=== PATIENT | female | born 1995 | race Caucasian/White ===

== ENCOUNTER 2019-09-10 14:33 | Emergency (ER) | payer BC, OTHER ==
[2019-09-10] MEDS ORDERED: SODIUM CHLORIDE 1,000 ML IV STA (14:49)
--- NOTE | 2019-09-10 14:49 | PDOC ---
Rapid Medical Evaluation Chief Complaint: Pain Time Seen by Provider: 09/10/19 14:46 Medical Evaluation: 09/10/19 14:48 CC: sudden left flank pain with n/v, no blood in urine, hx of rt renal colic Exam: appears uncomfortable, vss, left cva tenderness Plan: labs, urine, ivf, toradol, zofran Discharge Disposition - Diagnosis Left flank pain - Referrals - Patient Instructions - Post Discharge Activity
[2019-09-10] MEDS ORDERED: ONDANSETRON 4 MG/2 ML VIAL IVPUSH ONE (14:50)
[2019-09-10] MEDS ORDERED: KETOROLAC TROMETHAMINE 30 MG/1 ML VIAL IVPUSH ONE ×2 (14:50→16:23)
[2019-09-10 15:00] VITALS: BMI 20.3
--- NOTE | 2019-09-10 15:09 | PDOC ---
History of Present Illness - General Chief Complaint: Pain Stated Complaint: STOMACH PAIN Time Seen by Provider: 09/10/19 14:46 - History of Present Illness Initial Comments: 24 yo female with PMH of nephrolithiasis and UTI presents with 3 hour history of sudden left flank pain. The pain is worsened by movement and associated with nonbilious nonbloody vomiting. Patient feels that this is similar to her previous kidney stone episode. She denies dysuria, urinary frequency, diaphoresis, chest pain, sob, diarrhea, constipation. She is sexually active and uses oral contraceptive. Denies any trauma. Past History - Medical History Allergies/Adverse Reactions: Allergies Allergy/AdvReac Type Severity Reaction Status Date / Time Penicillins Allergy Verified 09/10/19 16:00 Home Medications: Ambulatory Orders Ciprofloxacin [Cipro -] 500 mg PO DAILY 3 Days #3 tablet 09/10/19 Ibuprofen 600 mg PO TID PRN #12 tablet 09/10/19 - Psycho-Social/Smoking History Smoking History: Never smoked Information on smoking cessation initiated: No - Substance Abuse Hx (Audit-C & DAST Scrn) How often the patient has a drink containing alcohol: Never Score: In Men: 4 or > Positive; In Women: 3 or > Positive: 0 Screen Result (Pos requires Nsg. Audit-10AR): Negative Review of Systems - Review of Systems Constitutional: No: Chills, Diaphoresis, Fever HEENTM: No: Recent change in vision, Double Vision Respiratory: No: Cough, Shortness of Breath Cardiac (ROS): No: Chest Pain, Edema, Irregular Heart Rate ABD/GI: Yes: Nausea, Vomiting. No: Abdominal Distended, Diarrhea : Yes: Flank Pain. No: Burning, Dysuria, Discharge, Frequency, Hematuria Musculoskeletal: Yes: Back Pain. No: Joint Pain, Joint Stiffness Integumentary: No: Bruising, Erythema, Flushing, Pruritus, Rash Neurological: No: Headache, Dizziness Psychiatric: No: Anxiety, Depression, Mood Swings Endocrine: No: Intolerance to Cold, Intolerance to Heat, Increased Urine *Physical Exam - Vital Signs Last Vital Signs Temp Pulse Resp BP Pulse Ox 98.2 F 94 H 17 131/89 100 09/10/19 14:47 09/10/19 14:47 09/10/19 14:47 09/10/19 14:47 09/10/19 14:47 - Physical Exam General Appearance: Yes: Appropriately Dressed, Apparent Distress, Severe Distress HEENT: positive: EOMI, Normal Voice Respiratory/Chest: positive: Lungs Clear, Normal Breath Sounds. negative: Respiratory Distress Cardiovascular: positive: Regular Rhythm, Regular Rate, S1, S2. negative: Edema, Murmur Gastrointestinal/Abdominal: positive: Flat, Soft, Other (Left CVA tenderness. No suprapubic tenderness. ). negative: Tender Lymphatic: negative: Adenopathy, Tenderness Musculoskeletal: positive: Normal Inspection. negative: Decreased Range of Motion ED Treatment Course - LABORATORY CBC & Chemistry Diagram: 09/10/19 15:40 09/10/19 15:40 Medical Decision Making - Medical Decision Making 24 yo female with PMH of nephrolithiasis presents with 3hr acute onset constant flank pain with nausea/vomiting. She says this episode is similar to her previous kidney stone episode. CBC, CMP, tests were negative. She was given 1L IV fluids, 1g IV tylenol, 30mg toradol, 4mg zofran. She received a Abdominal/Pelvic US which determined mild nephrohydrosis with a small 2mm stone in the renal pelvis. Pt indicates that pain has substantially decreased and is now resting comfortable. Her vitals are stable and she is able to tolerate oral medication. We discussed certain symptoms to be wary of that would warrant a return to the ED. 09/10/19 18:14 09/10/19 18:42 Discharge - Discharge Information Problems reviewed: Yes Clinical Impression/Diagnosis: Left flank pain, Nephrolithiasis Condition: Stable Disposition: HOME - Admission No - Additional Discharge Information Prescriptions: Ciprofloxacin [Cipro -] 500 mg PO DAILY 3 Days #3 tablet - Follow up/Referral Referrals: [facility] [place] [facility] [place] [Provider Group] Chantel Pond MD [Staff Physician] - - Patient Discharge Instructions Additional Instructions: You were treated today for a kidney stones. Follow with the referred PCP and printed circuit board panels plater for further monitoring of your kidney stones. If your condition worsens, return to the ED for further evaluation. This will include but are not limited to intractable vomiting, fevers, flank pain. Take Ibuprofen 600mg for pain (up to 3/day). We will prescribe you Ciprofloxacin 500mg, 1/day, for 3 days to treat your UTI. - Post Discharge Activity
[2019-09-10 15:44] LABS: BASO % 0.4 % (0-2.0); HEMATOCRIT 37.9 % (32.4-45.2); HEMOGLOBIN 12.1 GM/dL (10.7-15.3); LYMPH % 4.9 % (8-40); MCH 24.7 pg (25.7-33.7); MEAN CELL VOLUME 77.4 fl (80-96); MEAN PLT VOLUME 9.4 fl (7.5-11.1); NEUT % 91.7 % (42.8-82.8); PLATELET COUNT 414 K/MM3 (134-434); RBC 4.89 M/mm3 (3.60-5.2); RDW 15.4 % (11.6-15.6); WHITE BLOOD COUNT 10.9 K/mm3 (4.0-10.0)
[2019-09-10 16:05] LABS: ALBUMIN 4.1 g/dl (3.4-5.0); BILIRUBIN,TOTAL 0.9 mg/dL (0.2-1); BLOOD UREA NITROGEN 7.5 mg/dL (7-18); CALCIUM 9.6 mg/dL (8.5-10.1); POTASSIUM 5.2 mmol/L (3.5-5.1); TOT PROT 8.9 g/dl (6.4-8.2)
--- NOTE | 2019-09-10 16:15 | PDOC ---
Documentation entered by Konrad Schwartz SCRIBE, acting as scribe for Stevan Bowles MD. Stevan Bowles MD: This documentation has been prepared by the Efren flores Alexis, SCRIBE, under my direction and personally reviewed by me in its entirety. I confirm that the documentation accurately reflects all work, treatment, procedures, and medical decision making performed by me. Attending Attestation - Resident Resident Name: Leandra Cadet - ED Attending Attestation I have performed the following: I have examined & evaluated the patient, The case was reviewed & discussed with the resident, I agree w/resident's findings & plan, Exceptions are as noted - HPI HPI: 09/10/19 16:01 The patient is a 24 year old female with a significant past medical history of nephrolithiasis, UTI who presents to the ED with sudden onset left flank pain for 3 hours. Patient reports pain is worsened with movement and endorses NBNB vomiting. Patient also endorses she is feeling similar to previous nephrolithiasis episodes. Patient is sexually active and uses oral contraceptive. The patient denies dysuria, urinary frequency, diaphoresis, chest pain and shortness of breath. Denies fever, chills and/or any symptoms. Social Hx: None reported Allergies: Currently unknown - Physicial Exam PE: 09/10/19 15:28 See resident exam - Medical Decision Making 09/10/19 16:15 24 F with L flank pain. Suspect renal colic. Will r/o pyelo or infected stone. - Labs - UA, UCx - Pain control UA with blood, no infection Labs wnl Pain well controlled Pt is well appearing, with normal vitals. Clinically stable for DC at this time. I discussed the physical exam findings, ancillary test results and final diagnoses with the patient. I answered all of the patient's questions. The patient was satisfied with the care received and felt comfortable with the discharge plan and treatment plan. The patient agrees to follow up with the primary care physician within 24-72 hours. Please note this patient was evaluated during the COVID-19 crisis with the presidential [place] Act Declaration and the [place] governor executive order number 202. He/she was evaluated and clinical decisions were made relative to healthcare system resources as well as clinical picture during a pandemic crisis situation. Discharge - Discharge Information Problems reviewed: Yes Clinical Impression/Diagnosis: Left flank pain, Nephrolithiasis Condition: Stable Disposition: HOME - Additional Discharge Information Prescriptions: Ciprofloxacin [Cipro -] 500 mg PO DAILY 3 Days #3 tablet Ibuprofen 600 mg PO TID PRN #12 tablet PRN Reason: Pain - Follow up/Referral Referrals: [facility] – [place] [facility] [place] [Provider Group] Chantel Pond MD [Staff Physician] - - Patient Discharge Instructions Additional Instructions: You were treated today for a kidney stones. Follow with the referred PCP and cable placer for further monitoring of your kidney stones. If your condition worsens, return to the ED for further evaluation. This will include but are not limited to intractable vomiting, fevers, flank pain. Take Ibuprofen 600mg for p ain (up to 3/day). We will prescribe you Ciprofloxacin 500mg, 1/day, for 3 days to treat your UTI. - Post Discharge Activity
[2019-09-10 16:20] LABS: PLATELET ESTIMATE ADEQUATE
[2019-09-10] MEDS ORDERED: KETOROLAC TROMETHAMINE 30 MG/1 ML VIAL ONE (16:41)
[2019-09-10] MEDS ORDERED: ACETAMINOPHEN 1000 MG/100 ML VIAL (NON FORMULARY) IVPB ONE (16:45)
[2019-09-10 18:03] VITALS: BP 116/80; PULSE 74; TEMP 98.5
[2019-09-10 18:28] LABS: HCG,QUALITATIVE URINE Negative
[2019-09-10 18:29] LABS: EPI CELLS 8 /uL (0-25.1); HYALINE CASTS 0 /uL (0-3.1); PH,URINE >= 9.0 (5.0-8.0); URINE APPEARANCE CLEAR; URINE BACTERIA 114 /uL (0-1359); URINE BILIRUBIN NEGATIVE (NEGATIVE); URINE COLOR YELLOW; URINE GLUCOSE (UA) NEGATIVE (NEGATIVE); URINE KETONE 2+ (NEGATIVE); URINE LEUK ESTERASE NEGATIVE (NEGATIVE); URINE NITRITE NEGATIVE (NEGATIVE); URINE PROTEIN NEGATIVE (NEGATIVE); URINE RBC 1322 /uL (0-23.9); URINE WBC 7 /uL (0-25.8)
== END 2019-09-10 19:09 | disposition home or self-care (01) ==
LOC: JER 14:33
PROC: 3E033GC Introduction of Other Therapeutic Substance into Peripheral Vein, Percutaneous Approach (ICD-10-PCS; principal; 2019-09-10)
PROC: 3E0234Z Introduction of Serum, Toxoid and Vaccine into Muscle, Percutaneous Approach (ICD-10-PCS; principal; 2019-09-10)
DX: N20.0 Calculus of kidney (principal)
CPT/HCPCS: 36415; 76700-TC; 76775-TC; 80053; 81003; 84703; 85025; 99284-25; J0131

== ENCOUNTER 2019-11-08 11:02 | Emergency (ER) | payer BC, OTHER ==
[2019-11-08 11:08] VITALS: BP 113/78; PULSE 97; TEMP 98.3; BMI 20.2
--- NOTE | 2019-11-08 11:30 | PDOC ---
History of Present Illness - General Chief Complaint: Ear Problem Stated Complaint: EAR INFECTION Time Seen by Provider: 11/08/19 11:13 - History of Present Illness Initial Comments: 11/08/19 11:25 24-year-old female without comorbidities presents for evaluation of bilateral ear pain x3 days seen in an urgent care treated for otitis externa she continues to have pain. She is on Cipro Floxin drops Past History - Medical History Home Medications: Ambulatory Orders Ciprofloxacin [Cipro -] 500 mg PO DAILY 3 Days #3 tablet 09/10/19 Ibuprofen 600 mg PO TID PRN #12 tablet 09/10/19 Amox-Tr/K Cl [Augmentin - 875Mg Tablet] 1 tab PO BID #20 tablet 11/08/19 Neomycin/Polymyxin B/Hydrocort [Pkqfhsmb-Ojiljaiaf-Yn Ear Susp] 10 ml OT QID 7 Days #1 drops.susp 11/08/19 COPD: No Kidney Stones: Yes - Reproductive History Is Patient Now?: No - Immunization History Immunization Up to Date: No - Psycho-Social/Smoking History Smoking History: Never smoked - Substance Abuse Hx (Audit-C & DAST Scrn) How often the patient has a drink containing alcohol: Never Score: In Men: 4 or > Positive; In Women: 3 or > Positive: 0 Screen Result (Pos requires Nsg. Audit-10AR): Negative In the last yr the pt used illegal drug/Rx for NonMed reason: No Score: Yes response is considered Positive: 0 Screen Result (Positive result requires Nsg. DAST-10): Negative Review of Systems - Review of Systems HEENTM: Yes: Ear Pain *Physical Exam - Vital Signs Last Vital Signs Temp Pulse Resp BP Pulse Ox 98.3 F 97 H 18 113/78 100 11/08/19 11:05 11/08/19 11:05 11/08/19 11:05 11/08/19 11:05 11/08/19 11:05 - Physical Exam 11/08/19 11:25 Bilateral ear canals are erythemic with flaking of skin. Bilateral tympanic membranes are retracted and erythemic without light reflex. 11/08/19 11:30 Right ear has a periauricular lymph node which is freely mobile and non-matted Medical Decision Making - Medical Decision Making 11/08/19 11:25 I am concerned she may be having allergic reaction to the Cipro Floxin. I will switch her to neomycin eardrops with steroid for pain as well as oral Augmentin. Follow-up with ENT I have reviewed the pathophysiology with the patient. They are in agreement with the treatment plan all questions were answered to their satisfaction. Understanding for follow-up without fail was also conveyed to the patient. Again they are in agreement. Discharge - Discharge Information Problems reviewed: Yes Clinical Impression/Diagnosis: Otitis media, Otitis externa Condition: Stable Disposition: HOME - Admission No - Additional Discharge Information Prescriptions: Amox-Tr/K Cl [Augmentin - 875Mg Tablet] 1 tab PO BID #20 tablet - Follow up/Referral Referrals: Albert Gerard MD [Staff Physician] - - Patient Discharge Instructions Additional Instructions: Discontinue the Cipro eardrops. Please start the neomycin eardrops as well as the oral Augmentin. Return to the emergency room for worsening symptoms and without fail follow-up with ear nose and throat doctor in 1 to 2 days for further evaluation and treatment options. Tylenol and Motrin for any discomfort. - Post Discharge Activity
== END 2019-11-08 11:51 | disposition home or self-care (01) ==
LOC: JERFT 11:02
DX: H60.93 Unspecified otitis externa, bilateral (principal); H66.93 Otitis media, unspecified, bilateral
CPT/HCPCS: 99282-25

== ENCOUNTER 2020-02-06 08:20 | Emergency (ER) | payer BC, OTHER ==
[2020-02-06 08:29] VITALS: BP 125/87; PULSE 71; TEMP 97.8; BMI 20.3
[2020-02-06] MEDS ORDERED: ACETAMINOPHEN 325 MG TABLET (FP) ONE (09:15)
[2020-02-06 09:25] LABS: BASO % 0.8 % (0-2.0); EOS % 4.5 % (0-4.5); HEMATOCRIT 37.1 % (32.4-45.2); HEMOGLOBIN 11.8 GM/dL (10.7-15.3); LYMPH % 29.1 % (8-40); MCH 25.3 pg (25.7-33.7); MCHC 31.9 g/dl (32.0-36.0); MEAN CELL VOLUME 79.3 fl (80-96); MEAN PLT VOLUME 8.9 fl (7.5-11.1); MONO % 7.5 % (3.8-10.2); NEUT % 58.1 % (42.8-82.8); PLATELET COUNT 300 K/MM3 (134-434); RBC 4.67 M/mm3 (3.60-5.2); RDW 17.2 % (11.6-15.6); WHITE BLOOD COUNT 5.2 K/mm3 (4.0-10.0)
[2020-02-06] MEDS ORDERED: ACETAMINOPHEN 325 MG TABLET (FP) PO ONE (09:32)
[2020-02-06 10:13] LABS: ALBUMIN 3.9 g/dl (3.4-5.0); ALK PHOS 65 U/L (45-117); ANION GAP 6 MMOL/L (8-16); BILIRUBIN,TOTAL 0.3 mg/dL (0.2-1); BLOOD UREA NITROGEN 7.7 mg/dL (7-18); CALCIUM 8.9 mg/dL (8.5-10.1); CHLORIDE 104 mmol/L (98-107); CO2 28 mmol/L (21-32); CREATININE 0.7 mg/dL (0.55-1.3); GLUCOSE,RANDOM 88 mg/dL (74-106); POTASSIUM 3.9 mmol/L (3.5-5.1); SGOT/AST 8 U/L (15-37); SGPT/ALT 10 U/L (13-61); SODIUM 139 mmol/L (136-145); TOT PROT 8.2 g/dl (6.4-8.2)
== END 2020-02-06 10:35 | disposition home or self-care (01) ==
LOC: JER 08:20
DX: M94.0 Chondrocostal junction syndrome [Tietze] (principal)
CPT/HCPCS: 36415; 71046-TC-FY; 80053; 82550; 84484; 84703; 85025; 93005; 93010; 99284-25; C9803; U0003

== ENCOUNTER 2020-07-17 08:49 | Emergency (ER) | payer BC, OTHER ==
[2020-07-17 09:00] VITALS: BP 114/82; PULSE 75; TEMP 97.8; BMI 20.3
== END 2020-07-17 10:36 | disposition home or self-care (01) ==
LOC: JERFT 08:49
DX: H60.333 Swimmer's ear, bilateral (principal); Z32.02 Encounter for pregnancy test, result negative
CPT/HCPCS: 84703; 99283-25

== ENCOUNTER 2021-06-23 15:24 | Emergency (ER) | payer BC, OTHER ==
[2021-06-23 15:40] VITALS: BP 98/65; PULSE 100; TEMP 98.6; BMI 20.2
[2021-06-23 17:46] LABS: HCG,QUALITATIVE URINE Positive; URINE APPEARANCE TURBID; URINE BILIRUBIN NEGATIVE (NEGATIVE); URINE COLOR YELLOW; URINE GLUCOSE (UA) NEGATIVE (NEGATIVE); URINE KETONE NEGATIVE (NEGATIVE); URINE LEUK ESTERASE NEGATIVE (NEGATIVE); URINE NITRITE NEGATIVE (NEGATIVE); URINE PROTEIN NEGATIVE (NEGATIVE)
== END 2021-06-23 17:52 | disposition home or self-care (01) ==
LOC: JERFT 15:24 → JER 15:24 → JERFT 17:52
DX: O26.891 Other specified pregnancy related conditions, first trimester (principal); R10.84 Generalized abdominal pain; Z3A.11 11 weeks gestation of pregnancy
CPT/HCPCS: 76801-TC; 81003; 84703; 87086; 99284-25

== ENCOUNTER 2022-01-13 13:55 | Inpatient (IN) | payer BC, OTHER ==
[2022-01-13] MEDS: ELECTROLYTE-148 SOLN 1,000 ML IV SCH (15:30)
[2022-01-13 15:32] VITALS: BMI 24.6
[2022-01-13 16:32] LABS: BASO % 0.1 % (0-2.0); EOS % 0.6 % (0-4.5); HEMATOCRIT 35.8 % (32.4-45.2); LYMPH % 10.7 % (8-40); MCH 29.3 pg (25.7-33.7); MCHC 33.5 g/dl (32.0-36.0); MEAN CELL VOLUME 87.4 fl (80-96); MEAN PLT VOLUME 9.9 fl (7.5-11.1); MONO % 6.1 % (3.8-10.2); NEUT % 82.5 % (42.8-82.8); PLATELET COUNT 231 10^3/uL (134-434); RBC 4.09 M/mm3 (3.60-5.2); RDW 15.7 % (11.6-15.6); WHITE BLOOD COUNT 7.9 K/mm3 (4.0-10.0)
[2022-01-13 16:35] LABS: INR 0.94 (0.83-1.09); PROTHROMBIN TIME (PATIENT) 10.8 SEC (9.7-13.0)
[2022-01-13 16:38] LABS: ACTIVATED PTT 31.3 SECONDS (25.2-36.5)
[2022-01-13 16:46] LABS: CALCIUM 9.3 mg/dL (8.5-10.1)
[2022-01-13 16:47] LABS: BLOOD UREA NITROGEN 8.5 mg/dL (7-18)
[2022-01-13 16:50] LABS: CREATININE 0.6 mg/dL (0.55-1.3)
[2022-01-13] MEDS: VANCOMYCIN/WATER 1,250 MG/250 ML BAG (RESTRICTED TO ID ONLY) IVPB SCH (17:00)
[2022-01-13] MEDS ORDERED: PROMETHAZINE HCL 25 MG/1 ML VIAL IVPB PRN (19:17)
[2022-01-13] MEDS ORDERED: BUTORPHANOL TARTRATE 2 MG/ML VIAL IVPUSH PRN ×2 (19:19→23:44)
[2022-01-13] MEDS ORDERED: BUTORPHANOL TARTRATE 2 MG/ML VIAL ONE (19:22)
[2022-01-13] MEDS ORDERED: PROMETHAZINE HCL 25 MG/1 ML VIAL ONE (19:22)
[2022-01-13] MEDS ORDERED: BUTORPHANOL TARTRATE 1 MG/ML VIAL ONE (23:48)
[2022-01-14] MEDS: VANCOMYCIN/WATER 1,250 MG/250 ML BAG (RESTRICTED TO ID ONLY) IVPB SCH (01:00)
[2022-01-14] MEDS ORDERED: PROMETHAZINE HCL 25 MG/1 ML VIAL ONE (06:39)
[2022-01-14] MEDS ORDERED: FENTANYL/BUPIVACAINE/NS/PF - PCEA - 50 ML DISP.SYRIN EP ONE ×3 (09:42→17:48)
[2022-01-14] MEDS: VANCOMYCIN/WATER 1250 MG 1,250 MG/250 ML BAG IVPB SCH ×2 (09:45→17:30)
[2022-01-14] MEDS: ELECTROLYTE-148 SOLN 1,000 ML IV SCH ×2 (10:00→15:30)
[2022-01-14] MEDS: FENTANYL/BUPIVACAINE/NS/PF - PCEA - 50 ML DISP.SYRIN EP SCH ×3 (10:20→18:00)
[2022-01-14] MEDS ORDERED: NALOXONE HCL 0.4 MG/ML VIAL IVPUSH PRN (10:31)
[2022-01-14] MEDS ORDERED: OXYTOCIN 30 UNITS in 0.9% NS 30 UNIT/500 ML INFUS.BAG IVPB ONE (11:55)
[2022-01-14] MEDS: OXYTOCIN 30 UNITS in 0.9% NS 30 UNIT/500 ML INFUS.BAG IVPB SCH (12:00)
[2022-01-14] MEDS ORDERED: hydrALAZINE HCL 20 MG/ML VIAL ONE (18:37)
[2022-01-14] MEDS ORDERED: hydrALAZINE HCL 20 MG/ML VIAL IVPUSH ONE (18:40)
[2022-01-14] MEDS ORDERED: ONDANSETRON 4 MG/2 ML VIAL ONE (18:55)
[2022-01-14] MEDS: ONDANSETRON 4 MG/2 ML VIAL IVPUSH PRN (19:00)
[2022-01-14] MEDS ORDERED: PROPOFOL 40 ML ONE (19:02)
[2022-01-14] MEDS ORDERED: SUCCINYLCHOLINE CHLORIDE 200 MG/10 ML SYRINGE ONE (19:04)
[2022-01-14 19:06] LABS: BASO % 0.1 % (0-2.0); HEMATOCRIT 35.3 % (32.4-45.2); HEMOGLOBIN 11.3 GM/dL (10.7-15.3); LYMPH % 7.1 % (8-40); MCH 28.1 pg (25.7-33.7); MCHC 32.1 g/dl (32.0-36.0); MEAN CELL VOLUME 87.5 fl (80-96); MEAN PLT VOLUME 9.3 fl (7.5-11.1); MONO % 6.7 % (3.8-10.2); NEUT % 86.1 % (42.8-82.8); PLATELET COUNT 220 10^3/uL (134-434); RBC 4.03 M/mm3 (3.60-5.2); RDW 16.2 % (11.6-15.6); WHITE BLOOD COUNT 13.1 K/mm3 (4.0-10.0)
[2022-01-14 19:13] LABS: INR 1.02 (0.83-1.09); PROTHROMBIN TIME (PATIENT) 11.7 SEC (9.7-13.0)
[2022-01-14 19:16] LABS: ACTIVATED PTT 29.8 SECONDS (25.2-36.5)
[2022-01-14] MEDS ORDERED: CLINDAMYCIN PHOSPHATE 900 MG/6 ML VIAL IVPB ONE (19:20)
[2022-01-14] MEDS ORDERED: morphine SULFATE/PF 1 MG/2 ML (2cc Syringe - QUVA) ONE (19:25)
[2022-01-14 19:37] LABS: ALBUMIN 2.8 g/dl (3.4-5.0); BLOOD UREA NITROGEN 8.2 mg/dL (7-18)
[2022-01-14 19:40] LABS: CREATININE 0.8 mg/dL (0.55-1.3)
[2022-01-14 19:41] LABS: BILIRUBIN,TOTAL 0.7 mg/dL (0.2-1); TOT PROT 6.5 g/dl (6.4-8.2)
[2022-01-14 19:54] LABS: CALCIUM 7.8 mg/dL (8.5-10.1)
[2022-01-14] MEDS ORDERED: KETOROLAC TROMETHAMINE 30 MG/1 ML VIAL ONE (20:36)
[2022-01-14] MEDS ORDERED: ACETAMINOPHEN 325 MG TABLET (FP) PO PRN (20:38)
[2022-01-14] MEDS ORDERED: IBUPROFEN 600 MG TABLET (FP) PO PRN (20:38)
[2022-01-14] MEDS ORDERED: KETOROLAC TROMETHAMINE 30 MG/1 ML VIAL IVPUSH ONE (20:39)
[2022-01-14] MEDS ORDERED: MEPERIDINE HCL CARPU-JECT 25 MG/1 ML DISP.SYRIN IVPUSH ONE (20:39)
[2022-01-14 20:44] LABS: CORD BASE EXCESS -5.1 mmol/L (0-2); CORD HCO3 21.2 mmHg (20-29); CORD PCO2 43.8 mmHg (30-78); CORD pH 7.303 (7.14-7.44)
[2022-01-14 20:47] LABS: CORD HCO3 25.5 mmHg (20-29); CORD PCO2 58.7 mmHg (30-78); CORD pH 7.255 (7.14-7.44)
[2022-01-14] MEDS ORDERED: METHYLERGONOVINE MALEATE 0.2 MG/1 ML AMP IM PRN (21:03)
[2022-01-15] MEDS: IBUPROFEN 600 MG TABLET (FP) PO PRN ×3 (08:07→23:38)
[2022-01-15] MEDS: OXYTOCIN 20 UNITS in 0.9% NS 20 UNIT/1,000 ML INFUS.BAG IV SCH (08:09)
[2022-01-15 08:22] LABS: BASO % 0.1 % (0-2.0); HEMATOCRIT 28.7 % (32.4-45.2); HEMOGLOBIN 9.3 GM/dL (10.7-15.3); LYMPH % 5.6 % (8-40); MCH 28.3 pg (25.7-33.7); MCHC 32.4 g/dl (32.0-36.0); MEAN CELL VOLUME 87.5 fl (80-96); MEAN PLT VOLUME 9.8 fl (7.5-11.1); MONO % 7.4 % (3.8-10.2); NEUT % 86.9 % (42.8-82.8); PLATELET COUNT 186 10^3/uL (134-434); RBC 3.28 M/mm3 (3.60-5.2); RDW 16.1 % (11.6-15.6); WHITE BLOOD COUNT 12.1 K/mm3 (4.0-10.0)
[2022-01-15] MEDS: ENOXAPARIN NA (PORCINE) 30 MG/0.3 ML DISP.SYRIN SQ SCH (11:00)
[2022-01-15] MEDS: oxyCODONE HCL 5 MG TABLET PO PRN (12:00)
[2022-01-15] MEDS ORDERED: DOCUSATE SODIUM 100 MG CAPSULE (FP) PO PRN (12:44)
[2022-01-15] MEDS: ACETAMINOPHEN 325 MG TABLET (FP) PO PRN (15:29)
[2022-01-15] MEDS: SIMETHICONE 80 MG TAB.CHEW (FP) PO PRN ×2 (15:32→23:38)
[2022-01-15] MEDS ORDERED: BISACODYL 10 MG SUPP.RECT RC PRN (21:03)
[2022-01-15] MEDS: FERROUS SO4 325 MG TABLET (FP) PO SCH (21:41)
[2022-01-16] MEDS: IBUPROFEN 600 MG TABLET (FP) PO PRN ×2 (05:51→20:47)
[2022-01-16 07:00] LABS: BASO % 0.1 % (0-2.0); HEMATOCRIT 28.4 % (32.4-45.2); HEMOGLOBIN 9.6 GM/dL (10.7-15.3); LYMPH % 4.1 % (8-40); MCH 29.4 pg (25.7-33.7); MCHC 33.6 g/dl (32.0-36.0); MEAN CELL VOLUME 87.5 fl (80-96); MONO % 5.7 % (3.8-10.2); NEUT % 90.1 % (42.8-82.8); PLATELET COUNT 147 10^3/uL (134-434); RBC 3.25 M/mm3 (3.60-5.2); RDW 15.9 % (11.6-15.6); WHITE BLOOD COUNT 5.2 K/mm3 (4.0-10.0)
[2022-01-16] MEDS: ONDANSETRON 4 MG/2 ML VIAL IVPUSH PRN (07:16)
[2022-01-16] MEDS ORDERED: ACETAMINOPHEN INJECTION 100 ML IVPB ONE (07:28)
[2022-01-16] MEDS ORDERED: LACTATED RINGERS SOLUTION 1,000 ML IV SCH (07:30)
[2022-01-16] MEDS ORDERED: ACETAMINOPHEN 1000 MG/100 ML BAG IVPB ONE (07:42)
[2022-01-16] MEDS: OXYTOCIN 20 UNITS in 0.9% NS 20 UNIT/1,000 ML INFUS.BAG IV SCH (08:39)
[2022-01-16] MEDS: ELECTROLYTE-148 SOLN 1,000 ML IV SCH (08:39)
[2022-01-16] MEDS: OXYTOCIN 30 UNITS in 0.9% NS 30 UNIT/500 ML INFUS.BAG IVPB SCH (08:39)
[2022-01-16] MEDS: FENTANYL/BUPIVACAINE/NS/PF - PCEA - 50 ML DISP.SYRIN EP SCH (08:40)
[2022-01-16 08:53] LABS: EPI CELLS 11 /uL (0-25.1); HYALINE CASTS 0 /uL (0-3.1); URINE APPEARANCE CLEAR; URINE BACTERIA 31 /uL (0-1359); URINE BILIRUBIN NEGATIVE (NEGATIVE); URINE COLOR YELLOW; URINE GLUCOSE (UA) NEGATIVE (NEGATIVE); URINE KETONE NEGATIVE (NEGATIVE); URINE LEUK ESTERASE NEGATIVE (NEGATIVE); URINE NITRITE NEGATIVE (NEGATIVE); URINE PROTEIN NEGATIVE (NEGATIVE); URINE RBC 324 /uL (0-23.9); URINE WBC 19 /uL (0-25.8)
[2022-01-16 09:23] LABS: BASO % 0.1 % (0-2.0); HEMATOCRIT 28.7 % (32.4-45.2); HEMOGLOBIN 9.8 GM/dL (10.7-15.3); LYMPH % 4.5 % (8-40); MCH 29.6 pg (25.7-33.7); MEAN PLT VOLUME 8.7 fl (7.5-11.1); MONO % 6.3 % (3.8-10.2); NEUT % 89.1 % (42.8-82.8); PLATELET COUNT 154 10^3/uL (134-434); RDW 15.7 % (11.6-15.6); WHITE BLOOD COUNT 6.2 K/mm3 (4.0-10.0)
[2022-01-16] MEDS: ENOXAPARIN NA (PORCINE) 30 MG/0.3 ML DISP.SYRIN SQ SCH (11:05)
[2022-01-16] MEDS: FERROUS SO4 325 MG TABLET (FP) PO SCH ×2 (11:05→21:33)
[2022-01-16] MEDS: oxyCODONE HCL 5 MG TABLET PO PRN ×2 (17:31→21:59)
[2022-01-16] MEDS: SIMETHICONE 80 MG TAB.CHEW (FP) PO PRN (17:32)
[2022-01-16] MEDS: ACETAMINOPHEN 325 MG TABLET (FP) PO PRN (19:07)
[2022-01-16] MEDS: CEFOXITIN SODIUM 2 GM in DEXTROSE 5%-WATER - 100 ML IVPB SCH (19:30)
[2022-01-17] MEDS: CEFOXITIN SODIUM 2 GM in DEXTROSE 5%-WATER - 100 ML IVPB SCH ×5 (00:29→21:03)
[2022-01-17] MEDS: oxyCODONE HCL 5 MG TABLET PO PRN (07:31)
[2022-01-17] MEDS: SIMETHICONE 80 MG TAB.CHEW (FP) PO PRN (07:31)
[2022-01-17 09:41] LABS: BASO % 0.2 % (0-2.0); HEMOGLOBIN 11.6 GM/dL (10.7-15.3); LYMPH % 6.1 % (8-40); MCH 29.3 pg (25.7-33.7); MCHC 33.2 g/dl (32.0-36.0); MEAN CELL VOLUME 88.3 fl (80-96); MEAN PLT VOLUME 8.8 fl (7.5-11.1); MONO % 3.8 % (3.8-10.2); NEUT % 89.9 % (42.8-82.8); PLATELET COUNT 168 10^3/uL (134-434); RBC 3.96 M/mm3 (3.60-5.2); RDW 16.2 % (11.6-15.6); WHITE BLOOD COUNT 4.2 K/mm3 (4.0-10.0)
[2022-01-17] MEDS: ACETAMINOPHEN 325 MG TABLET (FP) PO PRN ×2 (09:42→15:49)
[2022-01-17] MEDS: ENOXAPARIN NA (PORCINE) 40 MG/0.4 ML DISP.SYRIN SQ SCH (09:42)
[2022-01-17] MEDS: FERROUS SO4 325 MG TABLET (FP) PO SCH ×2 (10:00→21:03)
[2022-01-17 10:18] LABS: CALCIUM 8.1 mg/dL (8.5-10.1)
[2022-01-17 10:19] LABS: BLOOD UREA NITROGEN 6.8 mg/dL (7-18)
[2022-01-17 10:22] LABS: CREATININE 1.3 mg/dL (0.55-1.3)
[2022-01-17] MEDS: POTASSIUM CHLORIDE TABS 20 MEQ TABLET.ER (FP) PO SCH ×2 (11:43→17:57)
[2022-01-17] MEDS: IBUPROFEN 600 MG TABLET (FP) PO PRN (21:04)
[2022-01-18] MEDS: CEFOXITIN SODIUM 2 GM in DEXTROSE 5%-WATER - 100 ML IVPB SCH ×3 (02:46→14:23)
[2022-01-18] MEDS: IBUPROFEN 600 MG TABLET (FP) PO PRN (08:08)
[2022-01-18 09:39] LABS: BASO % 0.2 % (0-2.0); EOS % 0.3 % (0-4.5); HEMATOCRIT 32.3 % (32.4-45.2); HEMOGLOBIN 10.8 GM/dL (10.7-15.3); LYMPH % 9.1 % (8-40); MCH 28.7 pg (25.7-33.7); MCHC 33.3 g/dl (32.0-36.0); MEAN CELL VOLUME 86.2 fl (80-96); MEAN PLT VOLUME 9.4 fl (7.5-11.1); NEUT % 80.4 % (42.8-82.8); PLATELET COUNT 207 10^3/uL (134-434); RBC 3.75 M/mm3 (3.60-5.2); RDW 15.6 % (11.6-15.6); WHITE BLOOD COUNT 5.3 K/mm3 (4.0-10.0)
[2022-01-18 09:48] LABS: BLOOD UREA NITROGEN 6.5 mg/dL (7-18)
[2022-01-18 09:49] LABS: CALCIUM 8.4 mg/dL (8.5-10.1)
[2022-01-18] MEDS: FERROUS SO4 325 MG TABLET (FP) PO SCH (09:50)
[2022-01-18 09:53] LABS: CREATININE 0.6 mg/dL (0.55-1.3)
[2022-01-18] MEDS: ENOXAPARIN NA (PORCINE) 40 MG/0.4 ML DISP.SYRIN SQ SCH (10:00)
[2022-01-18 11:08] VITALS: BP 132/84; PULSE 98; RESP 16
[2022-01-18 14:45] VITALS: TEMP 98
== END 2022-01-18 17:30 | disposition home or self-care (01) | DRG 787 ==
LOC: JDEL 13:55 → JLDR 14:35 → J3W 01-14 22:32
PROVIDERS: ADMIT Obstetrics & Gynecology; ATTEND Obstetrics & Gynecology
PROC: 10D00Z1 Extraction of Products of Conception, Low, Open Approach (ICD-10-PCS; principal; 2022-01-14)
DX: O48.0 Post-term pregnancy (principal); N39.0 Urinary tract infection, site not specified; O86.4 Pyrexia of unknown origin following delivery; B96.20 Unspecified Escherichia coli [E. coli] as the cause of diseases classified elsewhere; O14.14 Severe pre-eclampsia complicating childbirth; O99.824 Streptococcus B carrier state complicating childbirth; O62.1 Secondary uterine inertia; Z3A.40 40 weeks gestation of pregnancy; Z37.0 Single live birth
CPT/HCPCS: 0241U-QW; 36415; 36600; 71045-TC-FY; 76700-TC; 80048; 80053; 81003; 82803; 85025; 85610; 85730; 86780; 86850; 86900; 86901; 87040; 87086; 87186; 88307-TC; C9803-CS; U0003; U0005